=== PATIENT | female | born 1990 | race Caucasian/White ===

== ENCOUNTER 2018-01-31 17:38 | Emergency (ER) | payer MEDICARE ==
[2018-01-31 17:53] VITALS: O2SAT 96
[2018-01-31] MEDS ORDERED: Sodium Chloride 0.9% 1000 ML 1,000 ML ONE (19:28)
[2018-01-31] MEDS: Sodium Chloride 0.9% 1000 ML 1,000 ML IV STA (20:00)
[2018-01-31 20:07] LABS: BASOPHIL % 0.6 % (0.0-0.4); Basophil (Absolute #) 0.05 (0-0.4); Eosinophil % 4.5 % (0.00-5.0); Eosinophil (Absolute #) 0.36 (0-0.5); Granulocyte Absolute (ANC) 4.72 (1.4-6.9); Granulocytes % 58.8 % (36.0-66.0); Hematocrit 41.9 % (35-47); Hemoglobin 14.2 gm/dl (12.0-16.0); Lymphocyte (Absolute #) 2.26 (1.0-4.6); Lymphocytes % 28.2 % (24.0-44.0); Mean Cell Volume 89.5 fl (78-100); Mean Corpuscular Hemoglobin 30.3 pg (26-32); Mean Corpuscular Hgb Concent. 33.9 g/dl (32-36); Mean Platelet Volume 11.4 fl (6-9.5); Monocyte (Absolute #) 0.63 (0.0-1.3); Monocytes % 7.9 % (0.0-12.0); Platelet Count 258 K/mm3 (150-450); Red Blood Count 4.68 M/mm3 (4.1-5.4); Red Cell Distribution Width 13.9 % (11.5-14.0)
[2018-01-31 20:14] LABS: Appearance SLIGHTLY CLOUDY (CLEAR)
[2018-01-31 20:16] LABS: Bilirubin NEGATIVE (NEGATIVE); Blood NEGATIVE Ery/ul (0-5); Glucose NEGATIVE (NEGATIVE); Ketones NEGATIVE (NEGATIVE); Leukocyte Esterase NEGATIVE (NEGATIVE); Nitrite NEGATIVE (NEGATIVE); Protein,Urine Dip NEGATIVE (Negative); Urobilinogen NORMAL mg/dL (0-1)
[2018-01-31 20:24] LABS: ALBUMIN 4.5 g/dL (3.5-5.0); ALKALINE PHOSPHATASE 114 U/L (38-126); AMYLASE 69 U/L (30-110); ANION GAP 12.3 MEQ/L (5-15); BLOOD UREA NITROGEN 6 mg/dL (7-17); CHLORIDE 107 mmol/L (98-107); Calcium 9.9 mg/dL (8.4-10.2); Carbon Dioxide 28 mmol/L (22-30); Creatinine 1 0.77 mg/dL (0.52-1.04); Glucose 96 mg/dL (74-106); LIPASE 171 U/L (23-300); Potassium 3.6 mmol/L (3.5-5.1); SGOT/AST 21 U/L (14-36); SGPT/ALT 15 U/L (0-35); SODIUM 144 mmol/L (137-145); Total Protein 7.8 g/dL (6.3-8.2)
[2018-01-31 20:30] LABS: Amphetamine,Urine NEGATIVE (NEGATIVE); Barbiturate,Urine NEGATIVE (NEGATIVE); Benzodiazepine,Urine POSITIVE (NEGATIVE); Cocaine,Urine NEGATIVE (NEGATIVE); Methadone,Urine NEGATIVE (NEGATIVE); Opiate,Urine NEGATIVE (NEGATIVE); PCP,Urine NEGATIVE (NEGATIVE); THC,Urine NEGATIVE (NEGATIVE)
--- NOTE | 2018-01-31 20:53 | ERPHSYRPT ---
- History of Present Illness Time Seen by Provider: 01/31/18 19:24 Source: patient Exam Limitations: no limitations Patient Subjective Stated Complaint: abdominal pain, back pain, nausea, diarrhea , headache Triage Nursing Assessment: pt to er c/o abdominal pain, back pain, headache, nausea, diarrhea, pt alert and oreinted, able to answer all questions appropriate, falls asleep during triage but awakens with nam, Physician History: 28-year-old white female who was seen earlier at [facility] arrives with complaint of abdominal pain and back pain for 2 days patient has had no fevers states she has been vomiting positive pain with urination. Patient apparently seen at [facility] emergency room earlier sign herself AMA came here. Patient has been seen by me on multiple occasions has a history of chronic abdominal pain Past medical history includes chronic abdominal pain, back pain, epilepsy, seizures, asthma, bronchitis, Crohn's disease, cervical cancer, anxiety, ADD, bipolar, depression, panic disorder Past surgical history includes open-heart surgery and lung tie off at 2 years old Timing/Duration: day(s) (symptoms for 2 days) Severity: moderate Modifying Factors: Improves With: nothing Associated Symptoms: denies symptoms, nausea, vomiting, abdominal pain, other ( dysuria), No shortness of breath, No heartburn, No diaphoresis, No cough, No chills, No chest pain, No fever, No headaches, No loss of appetite, No malaise, No rash, No syncope, No seizure, No weakness Allergies/Adverse Reactions: measles, mumps, and rubella vaccine [measles,mumps&rubella vac live] Allergy ( Severe, Verified 01/31/18 17:47) diphtheria,pertussis,tetanus, Haem. [dip,pert,tet, Haem. conj vacc] Allergy ( Mild, Verified 01/31/18 17:47) naproxen Allergy (Mild, Verified 01/31/18 17:47) Hives ibuprofen Adverse Reaction (Verified 01/31/18 17:47) Swelling mmr Allergy (Severe, Uncoded 01/31/18 17:47) SEIZURE seizure dpt Allergy (Mild, Uncoded 01/31/18 17:47) SEIZURE seizure Home Medications: Levetiracetam 250 MG [Keppra 250 MG] 500 mg PO BID 11/12/14 [History] Buspirone HCl [Buspar] 15 mg PO BID 06/15/15 [History] Lisinopril 10 mg [Zestril 10 MG] 10 mg PO DAILY 07/12/15 [History] ALPRAZolam [Xanax 0.5 mg] 1 mg DAILY 04/27/16 [History] Hydrocodone Bit/Acetaminophen [Hydrocodon-Acetaminoph 7.5-325] 1 ea QID [History] Quetiapine Fumarate [Seroquel] 400 mg DAILY 04/27/16 [History] Risperidone 1 mg [Risperdal 1 MG] 1 mg DAILY 04/27/16 [History] Hx Tetanus, Diphtheria Vaccination/Date Given: No Hx Influenza Vaccination/Date Given: No Hx Pneumococcal Vaccination/Date Given: No Immunizations Up to Date: No - Review of Systems Constitutional: No Fever, No Chills Eyes: No Symptoms Ears, Nose, & Throat: No Symptoms Respiratory: No Cough, No Dyspnea Cardiac: No Chest Pain, No Edema, No Syncope Abdominal/Gastrointestinal: Abdominal Pain, Nausea, Vomiting Genitourinary Symptoms: Dysuria Musculoskeletal: No Back Pain, No Neck Pain Skin: No Rash Neurological: No Dizziness, No Focal Weakness, No Sensory Changes Psychological: No Symptoms Endocrine: No Symptoms All Other Systems: Reviewed and Negative - Past Medical History Pertinent Past Medical History: Yes Neurological History: Epilepsy, Seizures ENT History: No Pertinent History Cardiac History: Other Respiratory History: Asthma, Bronchitis Endocrine Medical History: No Pertinent History Musculoskeletal History: No Pertinent History GI Medical History: Crohns Disease, Other History: No Pertinent History Psycho-Social History: Anxiety, Attention Deficit Disorder, Bipolar, Depression , Panic Disorder Female Reproductive Disorders: Cervical Cancer Other Medical History: asd/vsd --open heart surg age 2, lung tie offs, cholesysectomy, cervical conization cervical cancer age 16 - Past Surgical History Past Surgical History: Yes Neuro Surgical History: No Pertinent History Cardiac: Other Respiratory: Other Gastrointestinal: Cholecystectomy Genitourinary: No Pertinent History Musculoskeletal: No Pertinent History Female Surgical History: Other Other Surgical History: OPEN HEART SX AND LUNG TIE OFF AT AGE 2 - Social History Smoking Status: Current every day smoker How long have you smoked: 12 years Exposure to second hand smoke: No Alcohol Use: None Drug Use: none Patient Lives Alone: No Significant Family History: no pertinent family hx - Female History Hx Now: No - Nursing Vital Signs Nursing Vital Signs: Initial Vital Signs Temperature 97.7 F 01/31/18 17:39 Pulse Rate 88 01/31/18 17:39 Respiratory Rate 18 01/31/18 17:39 Blood Pressure 125/84 01/31/18 17:39 O2 Sat by Pulse Oximetry 95 01/31/18 17:39 Pain Scale Pain Intensity 0 - Physical Exam General Appearance: other ( well-developed well nourished white female fast asleep in no acute distres) Eye Exam: PERRL/EOMI, eyes nml inspection Ears, Nose, Throat Exam: normal ENT inspection, TMs normal, pharynx normal, moist mucous membranes Neck Exam: normal inspection, non-tender, supple, full range of motion Respiratory Exam: normal breath sounds, lungs clear, No respiratory distress Cardiovascular Exam: regular rate/rhythm, normal heart sounds, normal peripheral pulses Gastrointestinal/Abdomen Exam: soft, normal bowel sounds, No tenderness, No mass Back Exam: normal inspection, normal range of motion, No CVA tenderness, No vertebral tenderness Extremity Exam: normal inspection, normal range of motion, pelvis stable Neurologic Exam: alert, oriented x 3, cooperative, 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 tested, normal mood/affect, nml cerebellar function, nml station & gait, sensation nml, No motor deficits Skin Exam: normal color, warm, dry, No rash Lymphatic Exam: No adenopathy SpO2 Interpretation: normal (96%) SpO2: 96 Oxygen Delivery: Room Air - Course Nursing assessment & vital signs reviewed: Yes EKG Interpreted by Me: RATE (70 bpm), Sinus Rhythm, NORMAL AXIS, Other (EKG: Sinus rhythm, 70 bpm, moderate amount of artifact, no acute ST or T wave changes noted) Ordered Tests: Active Orders 24 hr Category Date Time Status Accucheck STAT Care 01/31/18 19:23 Active EKG-ER Only STAT Care 01/31/18 20:54 Active IV Insertion STAT Care 01/31/18 19:22 Active ACETAMINOPHEN Stat Lab 01/31/18 20:55 Completed AMYLASE Stat Lab 01/31/18 20:00 Completed CBC W DIFF Stat Lab 01/31/18 20:00 Completed CMP Stat Lab 01/31/18 20:00 Completed HCG, Quantitative (Inhouse) Stat Lab 01/31/18 20:00 Completed LIPASE Stat Lab 01/31/18 20:00 Completed SALICYLATE Stat Lab 01/31/18 20:55 Completed UA W/RFX UR CULTURE Stat Lab 01/31/18 20:00 Completed Urine Triage Profile Stat Lab 01/31/18 20:00 Completed Medication Summary Discontinued Medications Generic Name Dose Route Start Last Admin Trade Name Ronel PRN Reason Stop Dose Admin Sodium Chloride 1,000 mls @ 999 mls/hr 01/31/18 19:22 01/31/18 21:34 Sodium Chloride 0.9% 1000 Ml IV 01/31/18 20:22 Infused .Q1H1M STA Infusion Sodium Chloride Confirm 01/31/18 19:28 Sodium Chloride 0.9% 1000 Ml Administered 01/31/18 19:29 Dose 1,000 mls @ ud .ROUTE .STK-MED ONE Lab/Rad Data: Laboratory Result Diagrams 01/31/18 20:00 01/31/18 20:00 Laboratory Results 01/31/18 01/31/18 01/31/18 Range/Units 20:55 20:00 20:00 WBC (4.0-10.5) K/mm3 RBC (4.1-5.4) M/mm3 Hgb (12.0-16.0) gm/dl Hct (35-47) % MCV (78-100) fl MCH (26-32) pg MCHC (32-36) g/dl RDW (11.5-14.0) % Plt Count (150-450) K/mm3 MPV (6-9.5) fl Gran % (36.0-66.0) % Eos # (Auto) (0-0.5) Absolute Lymphs (auto) (1.0-4.6) Absolute Monos (auto) (0.0-1.3) Lymphocytes % (24.0-44.0) % Monocytes % (0.0-12.0) % Eosinophils % (0.00-5.0) % Basophils % (0.0-0.4) % Absolute Granulocytes (1.4-6.9) Basophils # (0-0.4) Sodium (137-145) mmol/L Potassium (3.5-5.1) mmol/L Chloride (98-107) mmol/L Carbon Dioxide (22-30) mmol/L Anion Gap (5-15) MEQ/L BUN (7-17) mg/dL Creatinine (0.52-1.04) mg/dL Estimated GFR ML/MIN Glucose (74-106) mg/dL Calcium (8.4-10.2) mg/dL Total Bilirubin (0.2-1.3) mg/dL AST (14-36) U/L ALT (0-35) U/L Alkaline Phosphatase (38-126) U/L Serum Total Protein (6.3-8.2) g/dL Albumin (3.5-5.0) g/dL Amylase (30-110) U/L Lipase (23-300) U/L Beta HCG, Quant mIU/ml Ur Collection Type CLEAN CATCH Urine Color LT.YELLOW (YELLOW) Urine Appearance SLIGHTLY CLOUDY (CLEAR) Urine pH 6.0 (5-6) Ur Specific [place] 1.010 (1.005-1.025) Urine Protein NEGATIVE (Negative) Urine Ketones NEGATIVE (NEGATIVE) Urine Blood NEGATIVE (0-5) Jose/ul Urine Nitrite NEGATIVE (NEGATIVE) Urine Bilirubin NEGATIVE (NEGATIVE) Urine Urobilinogen NORMAL (0-1) mg/dL Ur Leukocyte Esterase NEGATIVE (NEGATIVE) Urine Culture Reflexed NO (NO) Urine Glucose NEGATIVE (NEGATIVE) mg/dL Salicylates < 1.0 L (2-20) mg/dL Urine Opiates Level NEGATIVE (NEGATIVE) Ur Methadone NEGATIVE (NEGATIVE) Acetaminophen < 10 L (10-30) ug/ml Urine Barbiturates NEGATIVE (NEGATIVE) Ur Phencyclidine (PCP) NEGATIVE (NEGATIVE) Urine Amphetamine NEGATIVE (NEGATIVE) U Benzodiazepine Level POSITIVE (NEGATIVE) Urine Cocaine NEGATIVE (NEGATIVE) Urine Marijuana (THC) NEGATIVE (NEGATIVE) Specimen Received 01/31/18199901/31/18 01/31/18 01/31/18 Range/Units 20:00 20:00 20:00 WBC 8.0 (4.0-10.5) K/mm3 RBC 4.68 (4.1-5.4) M/mm3 Hgb 14.2 (12.0-16.0) gm/dl Hct 41.9 (35-47) % MCV 89.5 (78-100) fl MCH 30.3 (26-32) pg MCHC 33.9 (32-36) g/dl RDW 13.9 (11.5-14.0) % Plt Count 258 (150-450) K/mm3 MPV 11.4 H (6-9.5) fl Gran % 58.8 (36.0-66.0) % Eos # (Auto) 0.36 (0-0.5) Absolute Lymphs (auto) 2.26 (1.0-4.6) Absolute Monos (auto) 0.63 (0.0-1.3) Lymphocytes % 28.2 (24.0-44.0) % Monocytes % 7.9 (0.0-12.0) % Eosinophils % 4.5 (0.00-5.0) % Basophils % 0.6 (0.0-0.4) % Absolute Granulocytes 4.72 (1.4-6.9) Basophils # 0.05 (0-0.4) Sodium 144 (137-145) mmol/L Potassium 3.6 (3.5-5.1) mmol/L Chloride 107 (98-107) mmol/L Carbon Dioxide 28 (22-30) mmol/L Anion Gap 12.3 (5-15) MEQ/L BUN 6 L (7-17) mg/dL Creatinine 0.77 (0.52-1.04) mg/dL Estimated GFR > 60.0 ML/MIN Glucose 96 (74-106) mg/dL Calcium 9.9 (8.4-10.2) mg/dL Total Bilirubin 0.40 (0.2-1.3) mg/dL AST 21 (14-36) U/L ALT 15 (0-35) U/L Alkaline Phosphatase 114 (38-126) U/L Serum Total Protein 7.8 (6.3-8.2) g/dL Albumin 4.5 (3.5-5.0) g/dL Amylase 69 (30-110) U/L Lipase 171 (23-300) U/L Beta HCG, Quant < 2.39 mIU/ml Ur Collection Type Urine Color (YELLOW) Urine Appearance (CLEAR) Urine pH (5-6) Ur Specific [place] (1.005-1.025) Urine Protein (Negative) Urine Ketones (NEGATIVE) Urine Blood (0-5) Jose/ul Urine Nitrite (NEGATIVE) Urine Bilirubin (NEGATIVE) Urine Urobilinogen (0-1) mg/dL Ur Leukocyte Esterase (NEGATIVE) Urine Culture Reflexed (NO) Urine Glucose (NEGATIVE) mg/dL Salicylates (2-20) mg/dL Urine Opiates Level (NEGATIVE) Ur Methadone (NEGATIVE) Acetaminophen (10-30) ug/ml Urine Barbiturates (NEGATIVE) Ur Phencyclidine (PCP) (NEGATIVE) Urine Amphetamine (NEGATIVE) U Benzodiazepine Level (NEGATIVE) Urine Cocaine (NEGATIVE) Urine Marijuana (THC) (NEGATIVE) Specimen Received - Progress Progress: improved Progress Note: 01/31/18 20:51 28-year-old white female with history of chronic abdominal pain seen earlier today at [place] secondary to abdominal pain and signed herself out AMA came to this hospital. She tells the nurse on arrival that she was having abdominal pain vomiting in that she was having dysuria. When I enter the room patient is fast asleep. She does not appear to be in acute distress when I try to open her eyes she resists eye opening. Patient is able to get up and walk to the bathroom after I see her, Appropriate labs including CBC CMP amylase lipase UA have been obtained. Patient does have a long history of chronic abdominal pain seen her both at [facility] as well as at this hospital in the past IV normal saline has been ordered for this patient do not anticipate narcotic analgesia in this patient 01/31/18 22:31 Patient was somnolent however she aroused easily initially was slow to wake up. Patient in no acute distress. Patient with chronic abdominal pain. Patient up to the bathroom without problems. Labs are essentially normal with the exception of positive benzodiazepines in the patient's urine. Will discharge. Patient will be advised to avoid further benzodiazepines tonight. Patient to follow-up with her family doctor. - Departure Time of Disposition: 22:29 Departure Disposition: Home Clinical Impression: Chronic abdominal pain Condition: Fair Critical Care Time: No Referrals: MACIEL SKINNER [Primary Care Provider] - Additional Instructions: Return home. Plenty of fluids, clear fluids only 24-48 hours if abdominal pain. Tylenol every 4 hours as needed for pain. Do not take any more benzodiazepines tonight. Follow-up with your family doctor. Return for acute distress or for severe symptoms.
[2018-01-31 21:18] LABS: ACETAMINOPHEN < 10 ug/ml (10-30); SALICYLATE < 1.0 mg/dL (2-20)
[2018-01-31 22:31] VITALS: BP 118/78; PULSE 72
== END 2018-01-31 22:37 | disposition home or self-care (01) ==
LOC: ED 17:38
DX: R10.9 Unspecified abdominal pain (principal); G89.29 Other chronic pain; F45.42 Pain disorder with related psychological factors; G40.909 Epilepsy, unspecified, not intractable, without status epilepticus; J45.909 Unspecified asthma, uncomplicated; F41.9 Anxiety disorder, unspecified; F31.9 Bipolar disorder, unspecified; Z85.41 Personal history of malignant neoplasm of cervix uteri; Z79.899 Other long term (current) drug therapy; R11.2 Nausea with vomiting, unspecified
CPT/HCPCS: 36000; 36415; 80053; 80307; 81002; 82150; 82962; 83690; 84702; 85025; 93005; 96374; 99284; G0481

== ENCOUNTER 2019-11-07 17:39 | Emergency (ER) | payer MEDICARE ==
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
[2019-11-07 19:19] LABS: Absolute Neutrophil Ct (ANC) 11.45 (1.4-6.9); BASOPHIL % 0.2 % (0.0-0.4); Basophil (Absolute #) 0.03 (0-0.4); Eosinophil % 2.1 % (0.00-5.0); Eosinophil (Absolute #) 0.32 (0-0.5); Hematocrit 46.4 % (35-47); Hemoglobin 16.4 gm/dl (12.0-16.0); Lymphocyte (Absolute #) 2.38 (1.0-4.6); Mean Cell Volume 91.5 fl (78-100); Mean Corpuscular Hemoglobin 32.3 pg (26-32); Mean Corpuscular Hgb Concent. 35.3 g/dl (32-36); Mean Platelet Volume 12.5 fl (7.5-11.0); Monocyte (Absolute #) 0.74 (0.0-1.3); Neutrophil % 76.7 % (36.0-66.0); Platelet Count 139 K/mm3 (150-450); Red Blood Count 5.07 M/mm3 (4.1-5.4); Red Cell Distribution Width 12.7 % (11.5-14.0); White Blood Count 14.9 K/mm3 (4.0-10.5)
[2019-11-07 19:20] LABS: ALBUMIN 4.2 g/dL (3.5-5.0); ALKALINE PHOSPHATASE 92 U/L (38-126); BLOOD UREA NITROGEN 10 mg/dL (7-17); CHLORIDE 107 mmol/L (98-107); Calcium 9.8 mg/dL (8.4-10.2); Carbon Dioxide 21 mmol/L (22-30); Creatinine 1 0.72 mg/dL (0.52-1.04); Glucose 104 mg/dL (74-106); Potassium 3.8 mmol/L (3.5-5.1); SGOT/AST 26 U/L (14-36); SGPT/ALT 15 U/L (0-35); SODIUM 139 mmol/L (137-145); Total Protein 7.6 g/dL (6.3-8.2)
[2019-11-07 19:22] LABS: ACETAMINOPHEN < 10 ug/ml (10-30); ETHYL ALCOHOL < 10 mg/dL (0-10)
[2019-11-07 19:24] LABS: Appearance CLOUDY (CLEAR); Bacteria RARE /HPF (NEGATIVE); Bilirubin NEGATIVE (NEGATIVE); Blood LARGE Ery/ul (0-5); Epithelial Cells MODERATE /HPF (FEW); Glucose NEGATIVE (NEGATIVE); Ketones NEGATIVE (NEGATIVE); Leukocyte Esterase SMALL (NEGATIVE); Mucus SLIGHT /HPF (NEGATIVE); Nitrite NEGATIVE (NEGATIVE); Protein,Urine Dip NEGATIVE (Negative); Specific Gravity 1.005 (1.005-1.025); Urobilinogen NEGATIVE mg/dL (0-1)
[2019-11-07 19:41] LABS: Barbiturate,Urine NEGATIVE (NEGATIVE); Benzodiazepine,Urine NEGATIVE (NEGATIVE); Cocaine,Urine NEGATIVE (NEGATIVE); Methadone,Urine NEGATIVE (NEGATIVE); Opiate,Urine NEGATIVE (NEGATIVE); PCP,Urine NEGATIVE (NEGATIVE); THC,Urine POSITIVE (NEGATIVE)
[2019-11-07 19:54] LABS: Slide Review 1 YES
[2019-11-07] MEDS ORDERED: BACTRIM DS TABLET PO ONE ×2 (20:04→20:09)
[2019-11-07 20:16] LABS: Amphetamine,Urine POSITIVE (NEGATIVE)
[2019-11-07] MEDS ORDERED: TYLENOL 325 MG ONE (20:34)
[2019-11-07] MEDS ORDERED: TYLENOL 325 MG PO STA (20:34)
[2019-11-07 21:45] VITALS: O2SAT 97
[2019-11-07 21:54] VITALS: BP 143/91; PULSE 70
== END 2019-11-07 22:38 ==
LOC: ED 17:39
DX: F32.9 Major depressive disorder, single episode, unspecified (principal); R45.851 Suicidal ideations; N39.0 Urinary tract infection, site not specified; Z79.891 Long term (current) use of opiate analgesic; F12.90 Cannabis use, unspecified, uncomplicated; F15.90 Other stimulant use, unspecified, uncomplicated
CPT/HCPCS: 36415; 80053; 80307; 81001; 84703; 85025; 87086; 90791; 93005; 93041; 99284; G0480; G0481; Q3014; A9270-GY

== ENCOUNTER 2020-03-13 14:11 | Emergency (ER) | payer MEDICARE ==
[2020-03-13 14:28] VITALS: O2SAT 97
[2020-03-13] MEDS ORDERED: Vistaril 50 MG/ML IM ONE ×2 (14:30→14:33)
--- NOTE | 2020-03-13 14:36 | ERPHSYRPT ---
- History of Present Illness Time Seen by Provider: 03/13/20 14:29 Source: patient Exam Limitations: other (Pt under influence of meth) Patient Subjective Stated Complaint: pt here for worms comign out of skin today after treating herself for lice, she states they all over her floor at home, she does admitt to smoking meth last night,she pepe sates she has dry heaves since she saw the worms Triage Nursing Assessment: pt alert, anxious, picking at skin, resp easy, skin w/d/p. has scratches to arms, no worms seen Physician History: 30 yo wf under influence of meth presents w generalized excoriations and mild nausea. Pt is not suicidal/homicidal. Timing/Duration: yesterday Quality: itchy Severity: moderate Location: generalized Possible Causes: other (Drug abuse) Modifying Factors: Improves With: other Associated Symptoms: No blisters, No change in skin texture, No difficulty breathing, No edema, No fever, No flushing, No headache, No hives, No jaundice, No malaise, No nasal congestion, No numbness, No pallor, No paresthesia, No selam chiae, No rash, No sore throat, No swelling/mass/lumps, No tingling Allergies/Adverse Reactions: measles, mumps, and rubella vaccine [measles,mumps&rubella vac live] Allergy (Severe, Verified 03/13/20 14:16) diphtheria,pertussis,tetanus, Haem. [dip,pert,tet, Haem. conj vacc] Allergy (Mild, Verified 03/13/20 14:16) naproxen Allergy (Mild, Verified 03/13/20 14:16) Hives ibuprofen Adverse Reaction (Verified 03/13/20 14:16) Swelling mmr Allergy (Severe, Uncoded 03/13/20 14:16) SEIZURE seizure dpt Allergy (Mild, Uncoded 03/13/20 14:16) SEIZURE seizure Home Medications: No Reportable Medications [No Reported Medications] 03/13/20 [History] Hx Tetanus, Diphtheria Vaccination/Date Given: No Hx Influenza Vaccination/Date Given: No Hx Pneumococcal Vaccination/Date Given: No Immunizations Up to Date: Yes Travel Risk - International Travel Have you traveled outside of the country in past 3 weeks: No - Coronavirus Screening Are you exhibiting any of the following symptoms?: Yes Symptoms: Vomiting/Diarrhea Close contact with a COVID-19 positive Pt in past 14-21 Days: No - Review of Systems Constitutional: No Symptoms Eyes: No Symptoms Ears, Nose, & Throat: No Symptoms Respiratory: No Symptoms Cardiac: No Symptoms Abdominal/Gastrointestinal: No Symptoms Genitourinary Symptoms: No Symptoms Musculoskeletal: No Symptoms Skin: Pruritis Neurological: No Symptoms Psychological: No Symptoms, Drug Abuse, Anxiety, No Alcohol Abuse, No Depression, No Suicidal Ideations, No Homicidal Ideations, No Emotional Lability, No Hallucinations, No Memory Loss, No Mood Changes Endocrine: No Symptoms Hematologic/Lymphatic: No Symptoms Immunological/Allergic: No Symptoms - Past Medical History Pertinent Past Medical History: Yes Neurological History: Epilepsy, Seizures ENT History: No Pertinent History Cardiac History: Other Respiratory History: Asthma, Bronchitis Endocrine Medical History: No Pertinent History Musculoskeletal History: No Pertinent History GI Medical History: Crohns Disease, Other History: No Pertinent History Psycho-Social History: Anxiety, Attention Deficit Disorder, Bipolar, Depression, Panic Disorder Female Reproductive Disorders: Cervical Cancer Other Medical History: asd/vsd --open heart surg age 2, lung tie offs, cholesysectomy, cervical conization cervical cancer age 16 - Past Surgical History Past Surgical History: Yes Neuro Surgical History: No Pertinent History Cardiac: Other Respiratory: Other Gastrointestinal: Cholecystectomy Genitourinary: No Pertinent History Musculoskeletal: No Pertinent History Female Surgical History: Other Other Surgical History: OPEN HEART SX AND LUNG TIE OFF AT AGE 2 - Social History Smoking Status: Current every day smoker How long have you smoked: 3 Exposure to second hand smoke: Yes Alcohol Use: None Drug Use: marijuana, methamphetamines, narcotics Patient Lives Alone: No Significant Family History: no pertinent family hx - Female History Hx Last Menstrual Period: last month Hx Now: No - Nursing Vital Signs Nursing Vital Signs: Initial Vital Signs Temperature 97 F 03/13/20 14:27 Pulse Rate 110 H 03/13/20 14:27 Respiratory Rate 18 03/13/20 14:27 Blood Pressure 176/89 03/13/20 14:27 O2 Sat by Pulse Oximetry 97 03/13/20 14:27 Pain Scale Pain Intensity 0 - Physical Exam General Appearance: no apparent distress Eye Exam: PERRL/EOMI, eyes nml inspection Ears, Nose, Throat Exam: normal ENT inspection, TMs normal, pharynx normal Neck Exam: normal inspection, non-tender, supple, full range of motion, other (Old trach scar), No meningismus, No mass, No Brudzinski, No Kernig's Respiratory Exam: normal breath sounds, lungs clear, airway intact, No respiratory distress Cardiovascular Exam: tachycardia (Mildly tachy-3/6 RUEL(previous vsd-asd surgery)) Gastrointestinal/Abdomen Exam: soft, normal bowel sounds, No tenderness Pelvic Exam: not done Back Exam: normal inspection, normal range of motion, No CVA tenderness Extremity Exam: normal inspection, normal range of motion Neurologic Exam: alert, oriented x 3, cooperative, 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, nml cerebellar function, sensation nml, No motor deficits, No sensory deficit Skin Exam: other (Excoriated lesions on skin due to meth abuse/No evidence of MRSA) SpO2 Interpretation: normal SpO2: 97 O2 Delivery: Room Air - Course Nursing assessment & vital signs reviewed: Yes Ordered Tests: Medication Summary Discontinued Medications Generic Name Dose Route Start Last Admin Trade Name Freq PRN Reason Stop Dose Admin Hydroxyzine HCl 50 mg 03/13/20 14:30 03/13/20 14:34 Vistaril 50 Mg/Ml IM 03/13/20 14:31 50 mg STAT ONE Administration Hydroxyzine HCl Confirm 03/13/20 14:33 Vistaril 50 Mg/Ml Administered 03/13/20 14:34 Dose 50 mg IM .STK-MED ONE - Progress Progress: improved Progress Note: 03/13/20 14:35 50mg IM vistaril Counseled pt/family regarding: drug and/or alcohol abuse, need for follow-up - Departure Departure Disposition: Home Clinical Impression: Methamphetamine abuse Condition: Stable Critical Care Time: No Referrals: MACIEL SKINNER [Primary Care Provider] - Instructions: Methamphetamine Additional Instructions: Follow up with your family MD or a good drug treatment program Return to ER as needed
[2020-03-13 14:46] VITALS: BP 158/98; PULSE 104
== END 2020-03-13 14:38 | disposition home or self-care (01) ==
LOC: ED 14:11
DX: F15.10 Other stimulant abuse, uncomplicated (principal)
CPT/HCPCS: 96372; 99283; J3410

== ENCOUNTER 2022-06-08 15:19 | Emergency (ER) | payer MEDICARE ==
[2022-06-08] MEDS ORDERED: Sodium Chloride 0.9% 1000 ML 1,000 ML IV SCH (15:30)
[2022-06-08] MEDS ORDERED: APRESOLINE 20 MG/ML INJ IV ONE ×3 (15:34→17:35)
[2022-06-08] MEDS ORDERED: APRESOLINE 20 MG/ML INJ ONE ×3 (15:43→17:36)
[2022-06-08] MEDS ORDERED: Sodium Chloride 0.9% 1000 ML 1,000 ML ONE (15:43)
[2022-06-08 15:50] LABS: A-aADO2 24; ABG HEMOGLOBIN 11.1; ARTERIAL BLD GAS O2 SATURATION 98.3 % (95-100); ARTERIAL BLOOD GAS FIO2 21 %; ARTERIAL BLOOD GAS PCO2 34 mmHg (35-45); ARTERIAL BLOOD GAS PO2 83 mmHg (75-100); ARTERIAL BLOOD GAS pH 7.48 (7.35-7.45); CARBOXYHEMOGLOBIN 2.5 % THgb (0.0-6.9); HCO3- 25.3 (22-28); HGB O2 SAT 95.2 g/dF (94-100); Methhemoglobin 0.7 % (1.4-1.5)
[2022-06-08 15:51] LABS: ABG SITE RIGHT RADIAL
[2022-06-08 16:12] LABS: Absolute Neutrophil Ct (ANC) 5.61 x10^3/uL (1.4-6.9); Basophil (Absolute #) 0.03 x10^3/uL (0-0.4); Eosinophil % 0.8 % (0.00-5.0); Eosinophil (Absolute #) 0.06 x10^3/uL (0-0.5); Hematocrit 31.6 % (35-47); Hemoglobin 10.8 g/dL (12.0-16.0); Lymphocyte (Absolute #) 1.33 x10^3/uL (1.0-4.6); Lymphocytes % 18.2 % (24.0-44.0); Mean Cell Volume 92.7 fL (78-100); Mean Corpuscular Hemoglobin 31.7 pg (26-32); Mean Corpuscular Hgb Concent. 34.2 g/dL (32-36); Mean Platelet Volume 12.1 fL (7.5-11.0); Monocyte (Absolute #) 0.26 x10^3/uL (0.0-1.3); Monocytes % 3.6 % (0.0-12.0); Neutrophil % 76.6 % (36.0-66.0); Platelet Count 138 x10^3/uL (150-450); Red Blood Count 3.41 x10^6/uL (4.1-5.4); Red Cell Distribution Width 14.5 % (11.5-14.0); White Blood Count 7.3 x10^3/uL (4.0-10.5)
[2022-06-08 16:22] LABS: Appearance CLEAR (CLEAR); Bilirubin NEGATIVE (NEGATIVE); Dipstick done @ ? MAIN LAB; Glucose NEGATIVE (NEGATIVE); Ketones NEGATIVE (NEGATIVE); Nitrite NEGATIVE (NEGATIVE); Protein,Urine Dip 30 (Negative); RBC NEGATIVE Ery/ul (0-5); Specific Gravity 1.015 (1.005-1.025); Urobilinogen 0.2 mg/dL (0-1)
[2022-06-08 16:26] LABS: Epithelial Cells RARE /HPF (FEW); Mucus SLIGHT /HPF (NEGATIVE)
[2022-06-08 16:27] LABS: ALBUMIN 2.5 g/dL (3.5-5.0); ALKALINE PHOSPHATASE 332 U/L (38-126); AMYLASE 46 U/L (30-110); ANION GAP 5.7 MEQ/L (5-15); CHLORIDE 108 mmol/L (98-107); Calcium 7.9 mg/dL (8.4-10.2); Carbon Dioxide 25 mmol/L (22-30); Direct Bilirubin 0.4 mg/dL (0.0-0.4); EST GLOMERULAR FILTRATION RATE > 60.0 ML/MIN; Glucose 93 mg/dL (74-106); LIPASE 47 U/L (23-300); Potassium 3.1 mmol/L (3.5-5.1); SGOT/AST 22 U/L (14-36); SGPT/ALT 14 U/L (0-35); SODIUM 135 mmol/L (137-145); Total Protein 5.5 g/dL (6.3-8.2)
[2022-06-08 16:27] LABS: Urine Cultured Indicated? YES
[2022-06-08 16:33] LABS: BLOOD UREA NITROGEN < 2 mg/dL (7-17)
--- NOTE | 2022-06-08 16:33 | XRAY ---
Indication: Cough and short of breath. 36 weeks . Comparison: February 05, 2014 Portable chest less inflated with new hazy right infrahilar interstitial alveolar opacity. Remaining heart and lungs unremarkable again with incidental azygos lobe. Bony thorax intact again with sternotomy wires.
[2022-06-08 16:42] LABS: Amphetamine,Urine NEGATIVE (NEGATIVE); Barbiturate,Urine NEGATIVE (NEGATIVE); Benzodiazepine,Urine NEGATIVE (NEGATIVE); Cocaine,Urine NEGATIVE (NEGATIVE); Methadone,Urine NEGATIVE (NEGATIVE); Opiate,Urine NEGATIVE (NEGATIVE); PCP,Urine NEGATIVE (NEGATIVE); THC,Urine POSITIVE (NEGATIVE)
[2022-06-08 16:55] LABS: INR 0.93 (0.8-3.0); PROTIME 9.9 SECONDS (9.4-12.5); PTT 26.7 SECONDS (25.1-36.5)
[2022-06-08] MEDS ORDERED: DUONEB 0.5-3 MG/3 ml Neb IH ONE ×2 (16:55→17:17)
[2022-06-08 16:57] LABS: INFLUENZA A NEGATIVE (NEGATIVE); INFLUENZA B NEGATIVE (NEGATIVE); RESPIRATORY SYNCTIAL VIRUS NEGATIVE (Negative); SARS-CoV-2 Xpert Express NEGATIVE (NEGATIVE)
--- NOTE | 2022-06-08 17:23 | ERPHSYRPT ---
- History of Present Illness Time Seen by Provider: 06/08/22 15:35 Source: patient Exam Limitations: no limitations Patient Subjective Stated Complaint: SOB Triage Nursing Assessment: Patient brought into ED per EMS and transferred to bed with assist of 2. Patient A+O X3. Patient's skin pink, warm and dry. Patient complains of SOB for 2 days. Patient states she is either 36-38 weeks , but hasn't seen her OB Dr. Martinez since March due to transportation issues. Patient also complains of right lower pelvic pain and pain when coughing 02/28. Patient's BLE noted to have edema. Physician History: Patient is a 32-year-old 4 para 1 AB 2 at 36 to 38 weeks gestation per the patient who presents with a complaint of shortness of breath. 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 She presents by ambulance. She does complain of some swelling she had a blood pressure on arrival of 203/102. Her past medical history includes a history of heart surgery as an and a seizure disorder for which she is not medicated at the present time. Timing/Duration: today Activites at Onset: none Quality: pressure (And suprapubic area) Onset Location: suprapubic Severity of Pain-Max: mild Severity of Pain-Current: mild Prior abdominal problems: none Sexual intercourse history: non-contributory Modifying Factors: Improves With: breathing Associated Symptoms: abdominal pain (Suprapubic pressure) Allergies/Adverse Reactions: measles, mumps, and rubella vaccine [measles,mumps&rubella vac live] Allergy (Severe, Verified 06/08/22 15:22) diphtheria,pertussis,tetanus, Haem. [dip,pert,tet, Haem. conj vacc] Allergy (Mild, Verified 06/08/22 15:22) naproxen Allergy (Mild, Verified 06/08/22 15:22) Hives ibuprofen Adverse Reaction (Verified 06/08/22 15:22) Swelling mmr Allergy (Severe, Uncoded 06/08/22 15:22) SEIZURE seizure dpt Allergy (Mild, Uncoded 06/08/22 15:22) SEIZURE seizure Home Medications: No Reportable Medications [No Reported Medications] 03/13/20 [History] Hx Tetanus, Diphtheria Vaccination/Date Given: No Hx Influenza Vaccination/Date Given: No Hx Pneumococcal Vaccination/Date Given: No Travel Risk - International Travel Have you traveled outside of the country in past 3 weeks: No - Coronavirus Screening Are you exhibiting any of the following symptoms?: No Close contact with a COVID-19 positive Pt in past 14-21 Days: No - Vaccine Status Have you recieved a Covid-19 vaccination: No - Review of Systems Constitutional: No Fever, No Chills Eyes: No Symptoms Ears, Nose, & Throat: No Symptoms Respiratory: No Cough, No Dyspnea Cardiac: No Chest Pain, No Edema, No Syncope Abdominal/Gastrointestinal: Abdominal Pain, No Nausea, No Vomiting, No Diarrhea Genitourinary Symptoms: No Dysuria Musculoskeletal: No Back Pain, No Neck Pain Skin: No Rash Neurological: Seizure, No Dizziness, No Focal Weakness, No Sensory Changes Psychological: No Symptoms Endocrine: No Symptoms All Other Systems: Reviewed and Negative - Past Medical History Pertinent Past Medical History: Yes Neurological History: Epilepsy, Seizures ENT History: No Pertinent History Cardiac History: Other Respiratory History: Asthma, Bronchitis Endocrine Medical History: No Pertinent History Musculoskeletal History: No Pertinent History GI Medical History: Crohns Disease, Other History: No Pertinent History Psycho-Social History: Anxiety, Attention Deficit Disorder, Bipolar, Depression, Panic Disorder Female Reproductive Disorders: Cervical Cancer Other Medical History: asd/vsd --open heart surg 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2, lung tie offs, cholesysectomy, cervical conization cervical cancer age 16 - Past Surgical History Past Surgical History: Yes Neuro Surgical History: No Pertinent History Cardiac: Other Respiratory: Other Gastrointestinal: Cholecystectomy Genitourinary: No Pertinent History Musculoskeletal: No Pertinent History Female Surgical History: Other Other Surgical History: OPEN HEART SX AND LUNG TIE OFF AT AGE 2 - Social History Smoking Status: Current every day smoker How long have you smoked: 0.5 Exposure to second hand smoke: Yes Alcohol Use: None Drug Use: none Patient Lives Alone: No Significant Family History: no pertinent family hx - Female History Hx Last Menstrual Period: unknown Hx Now: Yes Expected Date of Delivery: 07/16/22 - Nursing Vital Signs Nursing Vital Signs: Initial Vital Signs Temperature 97.8 F 06/08/22 15:26 Pulse Rate 105 H 06/08/22 15:26 Respiratory Rate 36 H 06/08/22 15:26 Blood Pressure 203/102 06/08/22 15:26 O2 Sat by Pulse Oximetry 96 06/08/22 15:26 Pain Scale Pain Intensity 7 - Physical Exam General Appearance: mild distress, alert Eye Exam: PERRL/EOMI, eyes nml inspection Ears, Nose, Throat Exam: normal ENT inspection, TMs normal, pharynx normal, moist mucous membranes Neck Exam: normal inspection, non-tender, supple, full range of motion Respiratory Exam: normal breath sounds, lungs clear, No respiratory distress Cardiovascular Exam: regular rate/rhythm, normal heart sounds, normal peripheral pulses Gastrointestinal/Abdomen Exam: soft, other (There is a gravid uterus with heart tones positive labor monitor does not show any contractions), No tenderness, No mass Pelvic Exam: other (Labor check was performed by the OB nurse she says the cer vix is closed long and firm.), No cervical motion tenderness, No vaginal bleeding Rectal Exam: deferred Back Exam: normal inspection, normal range of motion, No CVA tenderness, No vertebral tenderness Extremity Exam: normal inspection, normal range of motion, pelvis stable, pedal edema (1+) Neurologic Exam: alert, oriented x 3, 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, 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, normal mood/affect, sensation nml, other (Reflexes generally are brisk but equal), No motor deficits Skin Exam: normal color, warm, dry Lymphatic Exam: No adenopathy SpO2 Interpretation: normal SpO2: 96 O2 Delivery: Room Air - Course Nursing assessment & vital signs reviewed: Yes - Radiology Exams Chest X-ray Interpretation: Other (There is a area of right infrahilar alveolar opacity) Ordered Tests: Active Orders 24 hr Category Date Time Status CHEST 1 VIEW (PORTABLE) Stat Exams 06/08/22 15:30 Completed ABG [ARTERIAL BLOOD GASES] Stat Lab 06/08/22 15:42 Completed AMYLASE Stat Lab 06/08/22 15:29 Completed CBC W DIFF Stat Lab 06/08/22 15:29 Completed CMP Stat Lab 06/08/22 15:29 Completed CULTURE,URINE Stat Lab 06/08/22 15:40 Received FIBRINOGEN Stat Lab 06/08/22 Ordered Hepatic Function Panel Stat Lab 06/08/22 15:29 Completed LIPASE Stat Lab 06/08/22 15:29 Completed Lactic Acid Stat Lab 06/08/22 15:42 Completed PROTIME WITH INR Stat Lab 06/08/22 15:29 Completed PTT Stat Lab 06/08/22 15:29 Completed UA W/RFX CULTURE Stat Lab 06/08/22 15:40 Completed Urine Triage Profile Stat Lab 06/08/22 15:40 Completed Medication Summary Generic Name Dose Route Start Last Admin Trade Name Ronel PRN Reason Stop Dose Admin Sodium Chloride 1,000 mls @ 50 mls/hr 06/08/22 15:30 06/08/22 15:45 Sodium Chloride 0.9% 1000 Ml IV 07/08/22 15:29 50 mls/hr .Q20H LILIAN Administration Discontinued Medications Generic Name Dose Route Start Last Admin Trade Name Ronel PRN Reason Stop Dose Admin Albuterol/Ipratropium Confirm 06/08/22 16:55 Ipratropium/Albuterol Sulfate 3 Ml Ampul.Neb Administered 06/08/22 16:56 Dose 3 ml IH .STK-MED ONE Hydralazine HCl 10 mg 06/08/22 15:34 06/08/22 15:48 Hydralazine Hcl 20 Mg/Ml Vial IV 06/08/22 15:35 10 mg STAT ONE Administration Hydralazine HCl Confirm 06/08/22 15:43 Hydralazine Hcl 20 Mg/Ml Vial Administered 06/08/22 15:44 Dose 20 mg .ROUTE .STK-MED ONE Hydralazine HCl Confirm 06/08/22 16:39 Hydralazine Hcl 20 Mg/Ml Vial Administered 06/08/22 16:40 Dose 20 mg .ROUTE .STK-MED ONE Lab/Rad Data: Laboratory Result Diagrams 06/08/22 15:29 06/08/22 15:29 Laboratory Results 06/08/22 06/08/22 06/08/22 Range/Units 15:42 15:42 15:40 WBC (4.0-10.5) x10^3/uL RBC (4.1-5.4) x10^6/uL Hgb (12.0-16.0) g/dL Hct (35-47) % MCV (78-100) fL MCH (26-32) pg MCHC (32-36) g/dL RDW (11.5-14.0) % Plt Count (150-450) x10^3/uL MPV (7.5-11.0) fL Gran % (36.0-66.0) % Immature Gran % (Auto) (0.00-0.4) % Nucleat RBC Rel Count (0.00-0.1) % Eos # (Auto) (0-0.5) x10^3/uL Immature Gran # (Auto) (0.00-0.03) x10^3u/L Absolute Lymphs (auto) (1.0-4.6) x10^3/uL Absolute Monos (auto) (0.0-1.3) x10^3/uL Absolute Nucleated RBC (0.00-0.01) x10^3u/L Lymphocytes % (24.0-44.0) % Monocytes % (0.0-12.0) % Eosinophils % (0.00-5.0) % Basophils % (0.0-0.4) % Absolute Granulocytes (1.4-6.9) x10^3/uL Basophils # (0-0.4) x10^3/uL PT (9.4-12.5) SECONDS INR (0.8-3.0) APTT (25.1-36.5) SECONDS Puncture Site RIGHT RADIAL pCO2 34 L (35-45) mmHg pO2 83 (75-100) mmHg Base Excess 2.0 (-2.0-2.0) O2 Saturation 95.2 (94-100) g/dF ABG pH 7.48 H (7.35-7.45) ABG HCO3 25.3 (22-28) ABG O2 Sat (Measured) 98.3 (95-100) % Jonathan Test NOT APPLICABLE A-a Gradient 24 a/A Ratio 0.78 Hemoglobin 11.1 Carboxyhemoglobin 2.5 (0.0-6.9) % THgb Methemoglobin 0.7 L (1.4-1.5) % Temperature 37.0 C POC O2 Flow Rate 21 % Sodium (137-145) mmol/L Potassium 3.0 L (3.5-5.1) mmol/L Chloride (98-107) mmol/L Carbon Dioxide (22-30) mmol/L Anion Gap (5-15) MEQ/L BUN (7-17) mg/dL Creatinine (0.52-1.04) mg/dL Estimated GFR ML/MIN Glucose (74-106) mg/dL Lactic Acid 1.4 (0.4-2.0) Calcium (8.4-10.2) mg/dL Total Bilirubin (0.2-1.3) mg/dL Direct Bilirubin (0.0-0.4) mg/dL AST (14-36) U/L ALT (0-35) U/L Alkaline Phosphatase (38-126) U/L Serum Total Protein (6.3-8.2) g/dL Albumin (3.5-5.0) g/dL Amylase (30-110) U/L Lipase (23-300) U/L Urinalys Dipstick Clnc MAIN LAB Urine Color YELLOW (YELLOW) Urine Appearance CLEAR (CLEAR) Urine pH 7.0 (5-6) Ur Specific [place] 1.015 (1.005-1.025) POC Urine Protein Conf 30 (Negative) Urine Ketones NEGATIVE (NEGATIVE) Urine Nitrite NEGATIVE (NEGATIVE) Urine Bilirubin NEGATIVE (NEGATIVE) Urine Urobilinogen 0.2 (0-1) mg/dL Urine Leukocytes SMALL (NEGATIVE) Urine WBC (Auto) NONE (0-5) /HPF Urine RBC (Auto) NONE (0-2) /HPF U Epithel Cells (Auto) RARE (FEW) /HPF Urine Bacteria (Auto) NONE (NEGATIVE) /HPF Urine RBC NEGATIVE (0-5) Jose/ul Urine Mucus (Auto) SLIGHT (NEGATIVE) /HPF Ur Culture Indicated? YES Urine Glucose NEGATIVE (NEGATIVE) mg/dL Urine Opiates Level (NEGATIVE) Ur Methadone (NEGATIVE) Urine Barbiturates (NEGATIVE) Ur Phencyclidine (PCP) (NEGATIVE) Urine Amphetamine (NEGATIVE) U Benzodiazepine Level (NEGATIVE) Urine Cocaine (NEGATIVE) Urine Marijuana (THC) (NEGATIVE) 06/08/22 06/08/22 06/08/22 Range/Units 15:40 15:29 15:29 WBC (4.0-10.5) x10^3/uL RBC (4.1-5.4) x10^6/uL Hgb (12.0-16.0) g/dL Hct (35-47) % MCV (78-100) fL MCH (26-32) pg MCHC (32-36) g/dL RDW (11.5-14.0) % Plt Count (150-450) x10^3/uL MPV (7.5-11.0) fL Gran % (36.0-66.0) % Immature Gran % (Auto) (0.00-0.4) % Nucleat RBC Rel Count (0.00-0.1) % Eos # (Auto) (0-0.5) x10^3/uL Immature Gran # (Auto) (0.00-0.03) x10^3u/L Absolute Lymphs (auto) (1.0-4.6) x10^3/uL Absolute Monos (auto) (0.0-1.3) x10^3/uL Absolute Nucleated RBC (0.00-0.01) x10^3u/L Lymphocytes % (24.0-44.0) % Monocytes % (0.0-12.0) % Eosinophils % (0.00-5.0) % Basophils % (0.0-0.4) % Absolute Granulocytes (1.4-6.9) x10^3/uL Basophils # (0-0.4) x10^3/uL PT 9.9 (9.4-12.5) SECONDS INR 0.93 (0.8-3.0) APTT 26.7 (25.1-36.5) SECONDS Puncture Site pCO2 (35-45) mmHg pO2 (75-100) mmHg Base Excess (-2.0-2.0) O2 Saturation (94-100) g/dF ABG pH (7.35-7.45) ABG HCO3 (22-28) ABG O2 Sat (Measured) (95-100) % Jonathan Test A-a Gradient a/A Ratio Hemoglobin Carboxyhemoglobin (0.0-6.9) % THgb Methemoglobin (1.4-1.5) % Temperature C POC O2 Flow Rate % Sodium 135 L (137-145) mmol/L Potassium 3.1 L (3.5-5.1) mmol/L Chloride 108 H (98-107) mmol/L Carbon Dioxide 25 (22-30) mmol/L Anion Gap 5.7 (5-15) MEQ/L BUN < 2 L (7-17) mg/dL Creatinine 0.50 L (0.52-1.04) mg/dL Estimated GFR > 60.0 ML/MIN Glucose 93 (74-106) mg/dL Lactic Acid (0.4-2.0) Calcium 7.9 L (8.4-10.2) mg/dL Total Bilirubin 0.40 (0.2-1.3) mg/dL Direct Bilirubin 0.4 (0.0-0.4) mg/dL AST 22 (14-36) U/L ALT 14 (0-35) U/L Alkaline Phosphatase 332 H (38-126) U/L Serum Total Protein 5.5 L (6.3-8.2) g/dL Albumin 2.5 L (3.5-5.0) g/dL Amylase 46 (30-110) U/L Lipase 47 (23-300) U/L Urinalys Dipstick Clnc Urine Color (YELLOW) Urine Appearance (CLEAR) Urine pH (5-6) Ur Specific [place] (1.005-1.025) POC Urine Protein Conf (Negative) Urine Ketones (NEGATIVE) Urine Nitrite (NEGATIVE) Urine Bilirubin (NEGATIVE) Urine Urobilinogen (0-1) mg/dL Urine Leukocytes (NEGATIVE) Urine WBC (Auto) (0-5) /HPF Urine RBC (Auto) (0-2) /HPF U Epithel Cells (Auto) (FEW) /HPF Urine Bacteria (Auto) (NEGATIVE) /HPF Urine RBC (0-5) Jose/ul Urine Mucus (Auto) (NEGATIVE) /HPF Ur Culture Indicated? Urine Glucose (NEGATIVE) mg/dL Urine Opiates Level NEGATIVE (NEGATIVE) Ur Methadone NEGATIVE (NEGATIVE) Urine Barbiturates NEGATIVE (NEGATIVE) Ur Phencyclidine (PCP) NEGATIVE (NEGATIVE) Urine Amphetamine NEGATIVE (NEGATIVE) U Benzodiazepine Level NEGATIVE (NEGATIVE) Urine Cocaine NEGATIVE (NEGATIVE) Urine Marijuana (THC) POSITIVE (NEGATIVE) 06/08/22 Range/Units 15:29 WBC 7.3 (4.0-10.5) x10^3/uL RBC 3.41 L (4.1-5.4) x10^6/uL Hgb 10.8 L (12.0-16.0) g/dL Hct 31.6 L (35-47) % MCV 92.7 (78-100) fL MCH 31.7 (26-32) pg MCHC 34.2 (32-36) g/dL RDW 14.5 H (11.5-14.0) % Plt Count 138 L (150-450) x10^3/uL MPV 12.1 H (7.5-11.0) fL Gran % 76.6 H (36.0-66.0) % Immature Gran % (Auto) 0.4 (0.00-0.4) % Nucleat RBC Rel Count 0.0 (0.00-0.1) % Eos # (Auto) 0.06 (0-0.5) x10^3/uL Immature Gran # (Auto) 0.03 (0.00-0.03) x10^3u/L Absolute Lymphs (auto) 1.33 (1.0-4.6) x10^3/uL Absolute Monos (auto) 0.26 (0.0-1.3) x10^3/uL Absolute Nucleated RBC 0.00 (0.00-0.01) x10^3u/L Lymphocytes % 18.2 L (24.0-44.0) % Monocytes % 3.6 (0.0-12.0) % Eosinophils % 0.8 (0.00-5.0) % Basophils % 0.4 (0.0-0.4) % Absolute Granulocytes 5.61 (1.4-6.9) x10^3/uL Basophils # 0.03 (0-0.4) x10^3/uL PT (9.4-12.5) SECONDS INR (0.8-3.0) APTT (25.1-36.5) SECONDS Puncture Site pCO2 (35-45) mmHg pO2 (75-100) mmHg Base Excess (-2.0-2.0) O2 Saturation (94-100) g/dF ABG pH (7.35-7.45) ABG HCO3 (22-28) ABG O2 Sat (Measured) (95-100) % Jonathan Test A-a Gradient a/A Ratio Hemoglobin Carboxyhemoglobin (0.0-6.9) % THgb Methemoglobin (1.4-1.5) % Temperature C POC O2 Flow Rate % Sodium (137-145) mmol/L Potassium (3.5-5.1) mmol/L Chloride (98-107) mmol/L Carbon Dioxide (22-30) mmol/L Anion Gap (5-15) MEQ/L BUN (7-17) mg/dL Creatinine (0.52-1.04) mg/dL Estimated GFR ML/MIN Glucose (74-106) mg/dL Lactic Acid (0.4-2.0) Calcium (8.4-10.2) mg/dL Total Bilirubin (0.2-1.3) mg/dL Direct Bilirubin (0.0-0.4) mg/dL AST (14-36) U/L ALT (0-35) U/L Alkaline Phosphatase (38-126) U/L Serum Total Protein (6.3-8.2) g/dL Albumin (3.5-5.0) g/dL Amylase (30-110) U/L Lipase (23-300) U/L Urinalys Dipstick Clnc Urine Color (YELLOW) Urine Appearance (CLEAR) Urine pH (5-6) Ur Specific [place] (1.005-1.025) POC Urine Protein Conf (Negative) Urine Ketones (NEGATIVE) Urine Nitrite (NEGATIVE) Urine Bilirubin (NEGATIVE) Urine Urobilinogen (0-1) mg/dL Urine Leukocytes (NEGATIVE) Urine WBC (Auto) (0-5) /HPF Urine RBC (Auto) (0-2) /HPF U Epithel Cells (Auto) (FEW) /HPF Urine Bacteria (Auto) (NEGATIVE) /HPF Urine RBC (0-5) Jose/ul Urine Mucus (Auto) (NEGATIVE) /HPF Ur Culture Indicated? Urine Glucose (NEGATIVE) mg/dL Urine Opiates Level (NEGATIVE) Ur Methadone (NEGATIVE) Urine Barbiturates (NEGATIVE) Ur Phencyclidine (PCP) (NEGATIVE) Urine Amphetamine (NEGATIVE) U Benzodiazepine Level (NEGATIVE) Urine Cocaine (NEGATIVE) Urine Marijuana (THC) (NEGATIVE) - Progress Air Movement: good Blood Culture(s) Obtained: No Antibiotics given: No Discussed with : Other (Dr. Diaz [facility] MACHINIST at [facility] contacted as the on-call for Dr. Sauceda and he excepted this patient in transfer) - Departure Departure Disposition: Transfer Clinical Impression: Preeclampsia Condition: Fair Critical Care Time: No Referrals: MACIEL SKINNER [Primary Care Provider] - Follow up/PCP as directed Instructions: Preeclampsia (DC)
[2022-06-08 18:10] VITALS: BP 165/87; PULSE 120; O2SAT 93
== END 2022-06-08 18:23 | disposition short-term general hospital (02) ==
LOC: ED 15:19
DX: O14.93 Unspecified pre-eclampsia, third trimester (principal); Z3A.36 36 weeks gestation of pregnancy
CPT/HCPCS: 0241U; 36000; 36415; 36600; 71045; 80053; 80076; 80307; 81015; 82150; 82375; 82803; 83605; 83690; 85025; 85384; 85610; 85730; 87086; 94640; 96374; 96376; 99285; J0360; A9270-GY